=== PATIENT | male | born 1980 | race Hispanic/Latino ===

== ENCOUNTER 2017-05-13 20:18 | Emergency (ER) | payer SELFPAY | END 2017-05-13 21:25 | disposition home or self-care (01) | LOC: EDH 20:18 | DX: S50.01XA Contusion of right elbow, initial encounter (principal); Z72.0 Tobacco use; X58.XXXA Exposure to other specified factors, initial encounter; Y93.51 Activity, roller skating (inline) and skateboarding; Y92.89 Other specified places as the place of occurrence of the external cause; Y99.8 Other external cause status | CPT/HCPCS: 73080 ==

== ENCOUNTER 2021-12-14 16:58 | Emergency (ER) | payer OTHER ==
[~2021-12-14] VITALS: Ht 175.3 cm; Wt 67.1 kg
[2021-12-14] MEDS ORDERED: KETO200T11 PO (17:14)
[2021-12-14 17:19] VITALS: BP 107/76
== END 2021-12-14 17:31 | disposition home or self-care (01) ==
LOC: EDH 16:58
DX: B35.4 Tinea corporis (principal)